=== PATIENT | male | born 1980 | race Caucasian/White ===

== ENCOUNTER 2018-04-02 14:17 | Emergency (ER) | payer MEDICAID ==
[~2018-04-02] VITALS: Ht 185.4 cm; Wt 88.5 kg
[2018-04-02] MEDS ORDERED: PROZAC20 MG ORAL (14:31)
[2018-04-02] MEDS ORDERED: LIPITOR20 MG ORAL (14:31)
[2018-04-02] MEDS: LORazepam Inj 2mg/ml 1ml IM ONE (15:09)
[2018-04-02] MEDS ORDERED: ZOFRAN4 M3 ORAL (15:34)
[2018-04-02] MEDS ORDERED: ATIVAN1 MG ORAL (15:34)
[2018-04-02 15:38] VITALS: BP 118/65
[2018-04-02 15:39] VITALS: BP 128/81
--- NOTE | 2018-04-02 16:16 | Emergency Room Report ---
History of Present Illness General Chief Complaint: General Complaint Source: Patient Present Illness HPI The patient is a 37 old male presenting for possible heroin withdrawal. He states that she has not used heroin for the past 3 days and is in a rehabilitation center. He has been feeling nausea and anxiety which has been increasing over the past 2 days. he states that this feels similar to past heroin withdrawals. He states that he uses tramadol yesterday which did help. He denies other symptoms including V, F, chills, myalgia, CP, SOB Allergies: Coded Allergies: CLONIDINE (Verified Allergy, Unknown, 04/02/18) GABAPENTIN (Verified Allergy, Unknown, 04/02/18) Patient History Past Medical History: see triage record Pertinent Family History: none Reviewed Nursing Documentation: PMH: Agreed; PSxH: Agreed Nursing Documentation-PMH Past Medical History: No History, Except For Review of Systems All Other Systems: negative except mentioned in HPI Physical Exam Vital Signs Date Time Temp Pulse Resp B/P (MAP) Pulse Ox O2 Delivery O2 Flow Rate FiO2 04/02/18 14:25 97.9 102 22 128/81 98 Room Air Sp02 EP Interpretation: reviewed, normal General Appearance: no apparent distress, alert, GCS 15, non-toxic Head: normocephalic, atraumatic Eyes: bilateral eye normal inspection, bilateral eye PERRL Respiratory: chest non-tender, lungs clear, normal breath sounds, speaking full sentences Cardiovascular #1: regular rate, rhythm, no edema Neurologic: alert, oriented x3, responsive, motor strength/tone normal, sensory intact, speech normal Psychiatric: no suicidal/homicidal ideation, anxious Skin: normal color, no rash, warm/dry, well hydrated Medical Decision Making PA Attestation Dr. Novoa is my supervising physician. Patient management was discussed with my supervising physician Diagnostic Impression: Primary Impression: Heroin withdrawal ER Course The patient is a 37 old male presenting for possible heroin withdrawal. DDx considered but not limited to: heroin withdrawal, drug use, drug OD, anxiety disorder, psychosis, among others PE: Afebrile. Anxious Tachycardia. No MRG Lungs CTA bilat The patient is given IM ativan and zofran ODT. He will return to his rehab facility. He was told to continue drug cessation and follow up with his primary doctor. ER precautions given Last Vital Signs Date Time Temp Pulse Resp B/P (MAP) Pulse Ox O2 Delivery O2 Flow Rate FiO2 04/02/18 15:39 97.9 99 22 128/81 98 Room Air Status: improved Disposition: HOME, SELF-CARE Condition: Improved Scripts Ondansetron* (ZOFRAN*) 4 Mg Tablet 4 MG ORAL Q6H PRN for Nausea & Vomiting, #10 TAB Prov: COOKIE OLMEDO.A. 04/02/18 Lorazepam* (ATIVAN*) 1 Mg Tablet 1 MG ORAL THREE TIMES A DAY, #5 TAB Prov: COOKIE OLMEDO P.A. 04/02/18 Referrals: [facility],REFERRING (PCP) Patient Instructions: Opioid Withdrawal Additional Instructions: I discussed my findings with the patient. All questions and concerns have been answered. Treatment and medication compliance have been addressed. I advised the patient that they need to follow up with primary doctor as soon as possible. Return to ED if symptoms worsen, new symptoms arise, or if needed for any reason. Patient verbalized understanding of discharge instructions. Return to rehab center. COOKIE OLMEDO Apr 02, 2018 16:16
== END 2018-04-02 15:39 | disposition home or self-care (01) ==
LOC: EMR 14:40
DX: F11.23 Opioid dependence with withdrawal (principal); Z88.8 Allergy status to other drugs, medicaments and biological substances; F17.200 Nicotine dependence, unspecified, uncomplicated
CPT/HCPCS: 99283